=== PATIENT | female | born 1950 | race Caucasian/White ===

== ENCOUNTER 2017-05-20 16:54 | Emergency (ER) | payer MEDICARE, BC ==
[~2017-05-20] VITALS: Ht 157.5 cm; Wt 75.0 kg
[2017-05-20 16:58] VITALS: BP 197/88; PULSE 64; RESP 16; TEMP 97.7; O2SAT 95
--- NOTE | 2017-05-20 17:11 | PD ---
HPI Chief Complaint: Fall Time Seen by Provider: 17:11 Travel History International Travel<30 days: No Contact w/Intl Traveler<30days: No Traveled to known affect area: No History of Present Illness HPI 66-year-old female presents the emergency department status post trip and fall while walking her dogs. Patient landed on the cement sidewalk striking her left knee. Patient now here with complaints of left knee pain and inability to bear weight. Denies injury to the left ankle or foot. She denies left hip or other injury. Pain is currently about an 8 out of 10. She is allergic to sulfa. PFSH Past Medical History ?: Not Social History Alcohol Use: Yes Tobacco Use: No Substance Use: No Allergies-Medications (Allergen,Severity, Reaction): Coded Allergies: Sulfa (Sulfonamide Antibiotics) (Verified Allergy, Severe, rash, 05/20/17) Reported Meds & Prescriptions Reported Meds & Active Scripts Active Hydrocodone-Acetaminophen 5-325 mg Tab 1 Tab PO Q6H PRN Reported Lisinopril 20 Mg Tab 20 Mg PO DAILY Ranitidine (Ranitidine HCl) 150 Mg Cap 150 Mg PO DAILY Simvastatin 20 Mg Tab 20 Mg PO DAILY Diclofenac Potassium 50 Mg Tab 50 Mg PO TID Review of Systems Except as stated in HPI: all other systems reviewed are Neg General / Constitutional: No: Fever Eyes: No: Visual changes HENT: No: Headaches Cardiovascular: No: Chest Pain or Discomfort Respiratory: No: Shortness of Breath Gastrointestinal: No: Abdominal Pain Genitourinary: No: Dysuria Musculoskeletal: Positive: Arthralgias, Limited ROM, Pain Skin: Positive Lesions (superficial abrasions left knee), No Rash Neurologic: No: Weakness Psychiatric: No: Depression Endocrine: No: Polydipsia Hematologic/Lymphatic: No: Easy Bruising Physical Exam Narrative GENERAL: Patient appears in mild distress. SKIN: Warm and dry. Normal color. Normal turgor. Patient has superficial abrasions to the anterior left knee. HEAD: Atraumatic. Normocephalic. EYES: Pupils equal and round. No scleral icterus. No injection or drainage. ENT: No nasal bleeding or discharge. Mucous membranes pink and moist. NECK: Trachea midline. Supple and nontender. CARDIOVASCULAR: Regular rate and rhythm. RESPIRATORY: No accessory muscle use. Clear to auscultation. Breath sounds equal bilaterally. MUSCULOSKELETAL: Extremities without clubbing, cyanosis, or edema. No obvious deformities. No significant effusion is noted in the left knee. Exam is limited secondary to the patient's pain. X-rays ordered. NEUROLOGICAL: Awake and alert. No obvious cranial nerve deficits. Motor grossly within normal limits. Five out of 5 muscle strength in the arms and legs. Normal speech. PSYCHIATRIC: Appropriate mood and affect; insight and judgment normal. Data Data Last Documented VS Vital Signs Date Time Temp Pulse Resp B/P (MAP) Pulse Ox O2 Delivery O2 Flow Rate FiO2 05/20/17 17:10 Room Air 05/20/17 16:58 97.7 64 16 197/88 (124) 95 Orders Orders Knee, Complete (4vws) (05/20/17 17:13) Ice/Cold Pack (05/20/17 17:13) Splint Or Brace Apply/Monitor (05/20/17 17:58) Crutches (05/20/17 17:58) Acetamin-Hydrocod 325-5 Mg ([facility] 5-325 (05/20/17 18:00) MDM Medical Decision Making Medical Screen Exam Complete: Yes Emergency Medical Condition: Yes Differential Diagnosis Trip and fall. Left knee sprain. Abrasions. Possible fracture. Narrative Course X-rays the left knee is ordered. Patient is requesting pain medication at this time. Ice pack is applied to the injured area. After x-rays patient is requesting pain medication. She is given Lortab 5/325 by mouth. X-ray shows: 1. Joint effusion. 2. Possible nondisplaced fracture the tibial spine. Patient is placed in a knee immobilizer and crutches. Patient should follow-up with Dr. Moore's office the orthopedic on-call, or return if symptoms worsen. Diagnosis Primary Impression: Fracture of left tibial spine Qualified Codes: S82.115A - Nondisplaced fracture of left tibial spine, initial encounter for closed fracture Referrals: Manav Moore MD Patient Instructions: Crutch Instructions (ED), General Instructions, Knee Immobilizer (ED) Additional Instructions: X-ray shows: 1. Joint effusion. 2. Possible nondisplaced fracture the tibial spine. Patient is placed in a knee immobilizer and crutches. Patient should follow-up with Dr. Moore's office the orthopedic on-call, or return if symptoms worsen. Patient is given Lortab 5/325 one tab every 6 hours when necessary pain. Med/Other Pt SpecificInfo: Prescription(s) given Scripts Hydrocodone-Acetaminophen (Hydrocodone-Acetaminophen) 5-325 mg Tab 1 TAB PO Q6H Y for PAIN, #20 TAB 0 Refills Prov: Monika Story MD 05/20/17 Disposition: 01 DISCHARGE HOME Condition: Stable Isaac Cummins May 20, 2017 17:11
[2017-05-20] MEDS ORDERED: SIMV20TA PO (17:15)
[2017-05-20] MEDS ORDERED: LISI-515 PO (17:15)
[2017-05-20] MEDS ORDERED: RANI150C PO (17:15)
[2017-05-20] MEDS ORDERED: DICL50TA PO (17:15)
--- NOTE | 2017-05-20 17:53 | RADRPT ---
EXAM DATE/TIME: 05/20/2017 17:27 [facility] COMPARISON: No previous studies available for comparison. INDICATIONS : Left patella pain with abrasion post fall. MEDICAL HISTORY : Previous right knee fracture SURGICAL HISTORY : ORIF right tibia/fibula ENCOUNTER: Initial ACUITY: 1 day PAIN SCORE: 9/10 LOCATION: Left knee FINDINGS: A joint effusion is present. There is possible nondisplaced fracture in the region of the tibial spin es. The medial lateral tibial plateau is intact. There is spur formation off the superior aspect of t he patella. Bony mineralization is normal. CONCLUSION: 1. Joint effusion. 2. Possible nondisplaced fracture the tibial spine. Felipe Kern MD on May 20, 2017 at 17:50 Board Certified Radiologist. This report was verified electronically.
[2017-05-20] MEDS ORDERED: ACETAMINOPHEN/HYDROcodone 325 MG/5 MG TAB PO ONE (18:00)
[2017-05-20] MEDS ORDERED: HYDR-3516 PO (18:00)
== END 2017-05-20 18:57 | disposition home or self-care (01) ==
LOC: PHEFT 16:54
DX: S82.202A Unspecified fracture of shaft of left tibia, initial encounter for closed fracture (principal); W01.0XXA Fall on same level from slipping, tripping and stumbling without subsequent striking against object, initial encounter; Y93.K1 Activity, walking an animal
CPT/HCPCS: 73564; 99283; E0113; L1830